=== PATIENT | male | born 1945 | race Caucasian/White ===

== ENCOUNTER 2022-02-27 09:32 | Outpatient (CLI) | payer MEDICARE ==
[2022-02-27 10:56] LABS: Hemoglobin 14.9 g/dL (13.5-17.5); Mean Corpuscular HGB CONC 33.6 g/dL (32.0-36.0); Mean Corpuscular Hemoglobin 32.2 pg (27.0-33.0); Mean Corpuscular Volume 95.7 fl (81.2-95.1); Mean Platelet Volume 9.3 fl (7.4-10.4); Platelet Count 244 10x3/uL (150-450); RBC Distribution Width 13.5 % (11.5-14.5); Red Blood Cell (RBC) Count 4.63 10x6/uL (4.32-5.72); White Blood Cell (WBC) Count 8.1 10x3/uL (3.5-10.5)
[2022-02-27 11:10] LABS: PTT 29.1 sec (22.0-33.0); Prothrombin Time 10.6 sec (9.5-12.1)
[2022-02-27 11:11] LABS: Anion Gap 16 mmol/L (10-20); BUN (Urea Nitrogen) 23 mg/dL (8.4-25.7); Calc. Creatinine Clearance 0 mL/min (70-130); Calcium 9.3 mg/dL (7.8-10.44); Carbon Dioxide 23 mmol/L (23-31); Chloride 105 mmol/L (98-107); Glucose 113 mg/dL (83-110); Potassium 4.4 mmol/L (3.5-5.1); Sodium 140 mmol/L (136-145)
== END 2022-02-27 09:33 | disposition home or self-care (01) ==
LOC: CSHLAB 09:32
PROVIDERS: ATTEND Specialist
DX: Z01.818 Encounter for other preprocedural examination (principal); Z20.822 Contact with and (suspected) exposure to COVID-19
CPT/HCPCS: 80048; 85027; 85610; 85730; 93005; 93010; U0003; U0005

== ENCOUNTER 2022-03-02 09:16 | Observation (INO) | payer MEDICARE ==
[~2022-03-02 09:16] MED LIST: Adenosine 6 MG/2 ML VIAL ONE; Heparin 10,000 UNITS/ 10 ML VIAL ONE; Lidocaine 1% 20 ML MDV ONE; Nitroglycerin 50 MG/250 ML BOT 250 ML ONE; Sodium Chloride 0.9% 1,000 ML ONE
[2022-03-02] MEDS ORDERED: Fentanyl 100 MCG/2 ML VIAL ONE (11:00)
[2022-03-02] MEDS ORDERED: Midazolam HCl 5 mg/5 ml Vial ONE (11:00)
[2022-03-02] MEDS ORDERED: Protamine Sulfate 50 MG/5 ML VIAL ONE (12:40)
[2022-03-02] MEDS ORDERED: Morphine 2 MG/ML VIAL SLOW IVP PRN (13:10)
[2022-03-02] MEDS ORDERED: Acetaminophen/Codeine 30-300mg Tablet PO PRN ×2 (13:10)
[2022-03-02] MEDS ORDERED: Sodium Chloride 0.9% 1,000 ML IV SCH (13:15)
[2022-03-02] MEDS ORDERED: Morphine 2 MG/ML VIAL ONE (13:30)
[2022-03-02] MEDS ORDERED: Iopamidol 300 61% 100 ML VIAL FS ONE (14:19)
[2022-03-02] MEDS ORDERED: Iopamidol 300 61% 50 ML VIAL FS ONE (14:19)
[2022-03-02 15:37] VITALS: BMI 23.7
[2022-03-03 04:43] LABS: #Basophils 0.1 10x3/uL (0.0-0.2); #Eosinphils 0.2 10x3/uL (0.0-0.5); #Monocytes 0.7 10x3/uL (0.0-1.1); #Neutrophils 3.6 10x3/uL (1.5-8.4); %Basophils 0.9 % (0.0-2.0); %Eosinophils 2.8 % (0.0-6.0); %Lymphocytes 32.3 % (18.0-47.0); %Monocytes 10.4 % (0.0-10.0); %Neutrophils 53.3 % (40.0-75.0); Hemoglobin 13.8 g/dL (13.5-17.5); Mean Corpuscular HGB CONC 33.3 g/dL (32.0-36.0); Mean Corpuscular Hemoglobin 31.7 pg (27.0-33.0); Mean Corpuscular Volume 95.2 fl (81.2-95.1); Mean Platelet Volume 9.2 fl (7.4-10.4); Platelet Count 199 10x3/uL (150-450); RBC Distribution Width 13.5 % (11.5-14.5); Red Blood Cell (RBC) Count 4.36 10x6/uL (4.32-5.72); White Blood Cell (WBC) Count 6.8 10x3/uL (3.5-10.5)
[2022-03-03 05:11] LABS: ALT (SGPT) 13 U/L (8-55); AST (SGOT) 18 U/L (5-34); Albumin 3.6 g/dL (3.4-4.8); Alkaline Phosphatase 79 U/L (40-110); Anion Gap 13 mmol/L (10-20); BUN (Urea Nitrogen) 18 mg/dL (8.4-25.7); Bilirubin, Total 0.4 mg/dL (0.2-1.2); Calc. Creatinine Clearance 89 mL/min (70-130); Calcium 8.7 mg/dL (7.8-10.44); Carbon Dioxide 26 mmol/L (23-31); Chloride 105 mmol/L (98-107); Globulin 2.2 g/dL (2.4-3.5); Glucose 87 mg/dL (83-110); Protein, Total 5.8 g/dL (5.8-8.1); Sodium 140 mmol/L (136-145)
[2022-03-03] MEDS ORDERED: Ascorbic Acid 500 mg Chewable Tablet PO SCH (09:00)
[2022-03-03] MEDS ORDERED: Clopidogrel Bisulfate 75 MG TAB PO SCH (09:00)
[2022-03-03] MEDS ORDERED: Ezetimibe 10 MG TAB PO SCH (09:00)
[2022-03-03] MEDS ORDERED: [UNRECOGNIZED DRUG - OTHER] PO SCH (09:00)
[2022-03-03] MEDS ORDERED: Amlodipine 5 MG TAB PO SCH (09:00)
[2022-03-03] MEDS ORDERED: Ramipril 5 MG CAP PO SCH (09:00)
[2022-03-03] MEDS ORDERED: Aspirin 81 mg Enteric Coated Tablet PO SCH (09:00)
[2022-03-03] MEDS ORDERED: Multivitamin W/ Minerals 1 TAB PO SCH (09:00)
[2022-03-03 11:06] VITALS: BP 102/59; TEMP 97.9
[2022-03-03] MEDS ORDERED: Atorvastatin Calcium 40 MG TAB PO SCH (21:00)
== END 2022-03-03 11:15 | disposition home or self-care (01) ==
LOC: CSHSDC 09:16 → CSHTELE 14:07
PROVIDERS: ADMIT Specialist; ATTEND Specialist
PROC: 027034Z Dilation of Coronary Artery, One Artery with Drug-eluting Intraluminal Device, Percutaneous Approach (ICD-10-PCS; principal; 2022-03-02)
PROC: 4A023N7 Measurement of Cardiac Sampling and Pressure, Left Heart, Percutaneous Approach (ICD-10-PCS; 2022-03-02)
PROC: B2111ZZ Fluoroscopy of Multiple Coronary Arteries using Low Osmolar Contrast (ICD-10-PCS; 2022-03-02)
PROC: B2181ZZ Fluoroscopy of Left Internal Mammary Bypass Graft using Low Osmolar Contrast (ICD-10-PCS; 2022-03-02)
DX: I25.118 Atherosclerotic heart disease of native coronary artery with other forms of angina pectoris (principal); I10 Essential (primary) hypertension; E78.2 Mixed hyperlipidemia; I70.213 Atherosclerosis of native arteries of extremities with intermittent claudication, bilateral legs; F17.210 Nicotine dependence, cigarettes, uncomplicated; F03.90 Unspecified dementia, unspecified severity, without behavioral disturbance, psychotic disturbance, mood disturbance, and anxiety; Z79.02 Long term (current) use of antithrombotics/antiplatelets; Z79.82 Long term (current) use of aspirin; Z79.899 Other long term (current) drug therapy; Z88.8 Allergy status to other drugs, medicaments and biological substances; Z95.1 Presence of aortocoronary bypass graft; Z95.820 Peripheral vascular angioplasty status with implants and grafts; N40.0 Benign prostatic hyperplasia without lower urinary tract symptoms; Z87.820 Personal history of traumatic brain injury
CPT/HCPCS: 75736; 80053; 82962; 85025; 85347; 93459; C1725; C1760; C1769; C1874; C1887; C9600; J2270; 36416; 92928; 93005; 93010; 96374; 99152; 99153; G0378; J0153; J1644; J2250; J2720; J3010; J7050

== ENCOUNTER → 2024-05-01 | Day surgery (SDC) | payer MEDICARE ==
[~2024-05-01] MED LIST changes: -Adenosine 6 MG/2 ML VIAL ONE; +Aspirin 325 MG TAB ONE; +Lidocaine 1% (PF) 30 ML VIAL ONE; -Lidocaine 1% 20 ML MDV ONE; +Midazolam HCl 2 mg/2 ml Vial ONE; -Nitroglycerin 50 MG/250 ML BOT 250 ML ONE; -Sodium Chloride 0.9% 1,000 ML ONE; +fentaNYL 50 mcg/mL 1 mL Vial ONE
[2024-05-01 10:51] LABS: Hematocrit 41.6 % (38.8-50.0); Hemoglobin 13.9 g/dL (13.5-17.5); Mean Corpuscular HGB CONC 33.4 g/dL (32.0-36.0); Mean Corpuscular Hemoglobin 31.9 pg (27.0-33.0); Mean Corpuscular Volume 95.4 fL (81.2-95.1); Platelet Count 224 10x3/uL (150-450); RBC Distribution Width 13.2 % (11.5-14.5); Red Blood Cell (RBC) Count 4.36 10x6/uL (4.32-5.72); White Blood Cell (WBC) Count 6.1 10x3/uL (3.5-10.5)
[2024-05-01 11:00] LABS: PTT 29.6 sec (22.0-33.0); Prothrombin Time 10.9 sec (9.5-12.1)
[2024-05-01 11:14] LABS: Anion Gap 11 mmol/L (10-20); BUN (Urea Nitrogen) 20 mg/dL (8.4-25.7); Calc. Creatinine Clearance 0 mL/min (70-130); Calcium 9.3 mg/dL (7.8-10.44); Carbon Dioxide 28 mmol/L (23-31); Chloride 105 mmol/L (98-107); Estimated GFR 88; Glucose 103 mg/dL (83-110); Potassium 4.7 mmol/L (3.5-5.1); Sodium 139 mmol/L (136-145)
== END ==
LOC: CSHCCL 08:10
PROVIDERS: ATTEND Specialist
PROC: 4A023N7 Measurement of Cardiac Sampling and Pressure, Left Heart, Percutaneous Approach (ICD-10-PCS; principal; 2024-05-01)
DX: I25.118 Atherosclerotic heart disease of native coronary artery with other forms of angina pectoris (principal); I70.213 Atherosclerosis of native arteries of extremities with intermittent claudication, bilateral legs; I25.10 Atherosclerotic heart disease of native coronary artery without angina pectoris; I10 Essential (primary) hypertension; E78.2 Mixed hyperlipidemia; Z95.1 Presence of aortocoronary bypass graft; Z87.891 Personal history of nicotine dependence
CPT/HCPCS: 36215; 36225; 75710; 80048; 85027; 85610; 85730; 93005; 93459; C1760; C1769; J1644; J2001; J2250; J3010; Q9967; 36415; 93010; 99152